=== PATIENT | female | born 1945 | race Caucasian/White ===

== ENCOUNTER 2016-05-01 14:11 | Inpatient (IN) | payer MEDICARE, BC ==
[~2016-05-01] VITALS: Ht 170.2 cm; Wt 58.1 kg
--- NOTE | 2016-05-01 15:00 | NUR ---
PATIENT TO ROOM AT THIS TIME. ASSESSMENT COMPLETE, VS STABLE. FAMILY AT BEDSIDE. ORIENTED TO ROOM AND CALL LIGHT. CALL LIGHT WITHIN REACH.
--- NOTE | 2016-05-01 15:30 | NUR ---
PATIENT IV STARTED BY HERMES MCCLELLAN.
--- NOTE | 2016-05-01 15:45 | NUR ---
NGT AND SOSA PLACED BY NURSING STUDENTS AND INSTRUCTOR AT THIS TIME. PATIENT TOLERATED WITH PAIN. VOMITTED 300ML OF DARK GREEN FLUID. ZOFRAN GIVEN. FAMILY AT BEDSIDE. CALL LIGHT WITHIN REACH.
[2016-05-01 16:39] LABS: CALCIUM 9.8 mg/dL (8.5-10.1); CARBON DIOXIDE 33.2 mmol/L (21.0-32.0); CREATININE - SERUM 0.9 mg/dL (0.6-1.3); MAGNESIUM - SERUM 2.3 mg/dL (1.8-2.4); PHOSPHOROUS 3.2 mg/dL (2.5-4.9); POTASSIUM - SERUM 4.2 mmol/L (3.5-5.1)
[2016-05-01] MEDS ORDERED: NEURONTIN600 MG PO (16:58)
[2016-05-01] MEDS ORDERED: PLAVIX75 MG PO (16:59)
[2016-05-01] MEDS ORDERED: ZOCOR20 MG PO (16:59)
[2016-05-01] MEDS ORDERED: COREG 3.1253.125 MG PO (16:59)
[2016-05-01] MEDS ORDERED: BAYER CHEWABLE81 MG PO (17:00)
[2016-05-01] MEDS ORDERED: BETIMOL15 ML RIGHT EYE (17:09)
[2016-05-01] MEDS ORDERED: ASCORBIC ACID500 MG PO (17:10)
[2016-05-01] MEDS ORDERED: VITAMIN E400 UNI2 PO (17:10)
[2016-05-01] MEDS ORDERED: VITAMIN D2000 UNIT PO (17:11)
[2016-05-01] MEDS ORDERED: SUPER B COMPLE150 MG PO (17:11)
--- NOTE | 2016-05-01 17:15 | NUR ---
PATIENT IN ROOM WITH IV INTACT. NO COMPLAINTS AT THIS TIME. FAMILY AT BEDSIDE. CALL LIGHT WITHIN REACH.
[2016-05-01 17:51] LABS: APPEARANCE HAZY (CLEAR); BILIRUBIN NEGATIVE (NEGATIVE); COLOR DK YELLOW (YELLOW); GLUCOSE NEGATIVE (NEGATIVE); KETONE SMALL mg/dL (NEGATIVE); LEUKOCYTE ESTERASE TRACE (NEGATIVE); NITRITE NEGATIVE (NEGATIVE); PROTEIN 1+ mg/dL (NEGATIVE); UROBILINOGEN NORMAL (NORMAL)
[2016-05-01 17:52] LABS: BACTERIA MODERATE /hpf (NONE SEEN); CALCIUM OXALATE CRYSTALS 0-5 /hpf (NONE SEEN); EPITHELIAL CELLS 0-5 /hpf (0-5); MUCUS <1+ /lpf (NONE SEEN); RED CELLS - URINE 0-5 /hpf (0-5); WHITE CELLS - URINE 0-5 /hpf (0-5)
[2016-05-01 18:38] VITALS: BP 127/90; BMI 20.1; BMI 23.2
--- NOTE | 2016-05-01 18:50 | NUR ---
PATIENT IN BED WITH EYES CLOSED RESTING QUIETLY. IV INTACT. NGT INTACT. FAMILY AT BEDSIDE. CALL LIGHT WITHIN REACH.
[2016-05-01 20:00] VITALS: BP 128/86
--- NOTE | 2016-05-01 23:35 | NUR ---
ASSESSED AT THE BEGINNNING OF THE SHIFT. PT IS ALERT AN ORIENTED, ABLE TO VERBALIZE NEEDS. SHE IS CONNECTED TO LOW INTERMITTEN SUCTION VIA NG TUBE AND IT IS DRAWING GREEN BILE. SHE REMAINS NPO AND HAS A FLOEY CATH FOR VOIDING. SHE HAS STATED THAT SHE IS UNABLE TO SLEEP AND THIS HAS BEEN A COUPLE OF DAYS. WILL TRY TO MAKE HER COMFORTABLE POSSIBLE. THE BED IS LOW, RAILS UP X'S 2 WITH THE CALL LIGHT AT HAND.
[2016-05-02] VITALS: BP 129/85
[2016-05-02 04:00] VITALS: BP 145/89
[2016-05-02 06:43] LABS: BASOPHILS 0.1 % (0.0-2.0); EOSINOPHILS 0 % (0-7); HEMATOCRIT 44.9 % (36.0-48.0); HEMOGLOBIN 14.1 g/dL (12-16); IMMATURE GRANULOCYTES 0.3 % (0-5); LYMPHOCYTES 8.6 % (15-50); MCH 30.3 pg (26.0-34.0); MCHC 31.4 g/dL (31.0-37.0); MCV 96.4 fL (80.0-100.0); MEAN PLATELET VOLUME 9.9 fL (7.4-10.4); MONOCYTES 7.2 % (2-11); NEUTROPHILS 83.8 % (40-80); PLATELET COUNT 356 10x3/uL (130-400); RBC 4.66 10x6/uL (4.00-5.40); RDW 13.5 % (11.5-14.5); WBC 15.2 10x3/uL (4.8-10.8)
[2016-05-02 07:15] LABS: CALC OSMOLALITY 299 mosm/kg (275-300); CALCIUM 9.7 mg/dL (8.5-10.1); CARBON DIOXIDE 31.1 mmol/L (21.0-32.0); CHLORIDE - SERUM 103 mmol/L (98-107); CREATININE - SERUM 0.8 mg/dL (0.6-1.3); GLUCOSE 106 mg/dL (74-106); MAGNESIUM - SERUM 2.4 mg/dL (1.8-2.4); PHOSPHOROUS 3.8 mg/dL (2.5-4.9); POTASSIUM - SERUM 4.2 mmol/L (3.5-5.1); SODIUM 144 mmol/L (136-145); UREA NITROGEN 49 mg/dL (7-18); eGFR NON AFRICAN AMERICAN 75 mL/min (90-120)
--- NOTE | 2016-05-02 07:30 | NUR ---
PATIENT RECEIVED ALERT IN LOW CUELLAR POSITION RESTING QUIETLY. RESPIRTAIONS EVEN AND UNLABORED. NGT TO LIWS. DENIES NEEDS. SIDE RAILS UP X2. BED IN LOW POSITION. CALL LIGHT IN REACH.
[2016-05-02 08:50] VITALS: BP 140/80; BP 145/94
[2016-05-02 10:01] VITALS: Ht 170.2 cm; Wt 58.1 kg
--- NOTE | 2016-05-02 10:35 | NUR ---
SCDS PLACED ON PATIENT BILATERALLY. USE EXPLAINED. DENIES NEEDS. SIDE RAILS UP X2. BED IN LOW POSITION. CALL LIGHT IN REACH .
[2016-05-02 12:48] VITALS: BP 139/91
--- NOTE | 2016-05-02 13:00 | NUR ---
ALERT IN LOW CUELLRA POSITION WITH FAMILY PRESENT. DENIES NEEDS. SIDE RAILS UP X2. BED IN LOW POSITION. CALL LIGHT IN REACH.
[2016-05-02 16:49] VITALS: BP 138/88
--- NOTE | 2016-05-02 17:00 | NUR ---
PATIENT ALERT IN BED VISITING WITH GUESTS. RESPIRATIONS EVEN AND UNLABORED. SIDE RAILS UP X2. BED IN LOW POSITION. CALL LIGHT IN REACH.
--- NOTE | 2016-05-02 19:26 | NUR ---
PATIENT STATED SHE WOULD LIKE HER ATIVAN WITH HER NIGHT MEDS. PATIENT DENIES OTHER NEEDS AT THIS TIME. BED IN LOWEST POSITION AND CALL LIGHT WITHIN REACH.
[2016-05-02 20:59] VITALS: BP 122/79
[2016-05-03] VITALS: BP 133/85
[2016-05-03 04:00] VITALS: BP 139/82
[2016-05-03 05:25] LABS: BASOPHILS 0.1 % (0.0-2.0); EOSINOPHILS 0.1 % (0-7); HEMOGLOBIN 13.1 g/dL (12-16); IMMATURE GRANULOCYTES 0.3 % (0-5); MCHC 31.2 g/dL (31.0-37.0); MCV 96.1 fL (80.0-100.0); MEAN PLATELET VOLUME 9.6 fL (7.4-10.4); MONOCYTES 9.1 % (2-11); NEUTROPHILS 80.4 % (40-80); PLATELET COUNT 322 10x3/uL (130-400); RBC 4.37 10x6/uL (4.00-5.40); RDW 13.3 % (11.5-14.5)
[2016-05-03 06:21] LABS: ALBUMIN 3.2 g/dL (3.4-5.0); ALKALINE PHOSPHATASE 74 U/L (46-116); ALT (SGPT) 14 U/L (10-68); BILIRUBIN - TOTAL 0.46 mg/dL (0.2-1.3); CALC OSMOLALITY 305 mosm/kg (275-300); CALCIUM 9.1 mg/dL (8.5-10.1); CARBON DIOXIDE 31.3 mmol/L (21.0-32.0); CHLORIDE - SERUM 110 mmol/L (98-107); CREATININE - SERUM 0.8 mg/dL (0.6-1.3); GLUCOSE 91 mg/dL (74-106); MAGNESIUM - SERUM 2.4 mg/dL (1.8-2.4); PHOSPHOROUS 3.2 mg/dL (2.5-4.9); POTASSIUM - SERUM 4.1 mmol/L (3.5-5.1); PROTEIN - SERUM 6.9 g/dL (6.4-8.2); SODIUM 149 mmol/L (136-145); UREA NITROGEN 41 mg/dL (7-18); eGFR NON AFRICAN AMERICAN 75 mL/min (90-120)
--- NOTE | 2016-05-03 07:40 | NUR ---
PATIENT RECEIVED ALERT IN LOW CUELLAR POSITION. RESPIRATIONS EVEN AND UNLABORED. SIDE RAILS UP X2. BED IN LOW POSITION. CALL LIGHT IN REACH. DENIES PAIN AND OTHER NEEDS.
[2016-05-03 07:48] VITALS: BP 141/83
--- NOTE | 2016-05-03 09:30 | NUR ---
PATIENT IN LOW CUELLAR POSITION ALERT AND EATING ICE CHIPS. DENIES NEEDS. SIDE RAILS UP X2. BED IN LOW POSITION. CALL LIGHT IN REACH.
--- NOTE | 2016-05-03 11:00 | NUR ---
ALERT IN LOW CUELLAR POSITION. RESPIRATIONS EVEN AND UNLABORED. DENIES PAIN AND OTHER NEEDS. SIDE RAILS UP X2. BED IN LOW POSITION. CALL LIGHT IN REACH.
[2016-05-03 12:22] VITALS: BP 139/82
--- NOTE | 2016-05-03 13:20 | NUR ---
SITTING UP ON SIDE OF BED ALERT. NO SIGNS OF DISTRESS NOTED. PROVIDED WITH POPSICLE. DENIES NEEDS. SIDE RAILS UP X2. BED IN LOW POSITION. CALL LIGHT IN REACH. FAMILY AT BEDSIDE.
--- NOTE | 2016-05-03 15:00 | NUR ---
ASSISTED UP TO RESTROOM. UNABLE TO HAVE BM AT THIS TIME. ASSISTED BACK TO BED. POSITIONED SELF FOR COMFORT. SIDE RAILS UP X2. BED IN LOW POSITION. CALL LIGHT IN REACH. DENIES NEEDS.
[2016-05-03 15:42] VITALS: BP 91/46
--- NOTE | 2016-05-03 17:15 | NUR ---
ASSISTED UP TO CHAIR AT BEDSIDE. WELL TOLERATED. DENIES NEEDS. CALL LIGHT IN REACH.
[2016-05-03 21:00] VITALS: BP 139/95
--- NOTE | 2016-05-03 21:48 | NUR ---
ADMINISTERED ATIVAN PER PATIENT'S REQUEST. PATIENT DENIES OTHER NEEDS AT THIS TIME. BED IN LOWEST POSITION AND CALL LIGHT WITHIN REACH. ENCOURAGED PATIENT TO CALL IF SHE HAS OTHER NEEDS.
[2016-05-04 01:30] VITALS: BP 138/82
[2016-05-04 04:00] VITALS: BP 149/87
[2016-05-04 05:11] LABS: BASOPHILS 0.1 % (0.0-2.0); EOSINOPHILS 0.7 % (0-7); HEMATOCRIT 39.8 % (36.0-48.0); HEMOGLOBIN 12.6 g/dL (12-16); IMMATURE GRANULOCYTES 0.2 % (0-5); LYMPHOCYTES 16.8 % (15-50); MCHC 31.7 g/dL (31.0-37.0); MCV 94.8 fL (80.0-100.0); MONOCYTES 8.3 % (2-11); NEUTROPHILS 73.9 % (40-80); PLATELET COUNT 321 10x3/uL (130-400); RDW 13.1 % (11.5-14.5)
[2016-05-04 05:20] LABS: WBC 9.5 10x3/uL (4.8-10.8)
[2016-05-04 05:25] LABS: ALKALINE PHOSPHATASE 70 U/L (46-116); ALT (SGPT) 14 U/L (10-68); BILIRUBIN - TOTAL 0.48 mg/dL (0.2-1.3); CALC OSMOLALITY 294 mosm/kg (275-300); CALCIUM 8.4 mg/dL (8.5-10.1); CARBON DIOXIDE 32.2 mmol/L (21.0-32.0); CHLORIDE - SERUM 105 mmol/L (98-107); CREATININE - SERUM 0.7 mg/dL (0.6-1.3); GLUCOSE 79 mg/dL (74-106); MAGNESIUM - SERUM 2.1 mg/dL (1.8-2.4); PHOSPHOROUS 2.6 mg/dL (2.5-4.9); POTASSIUM - SERUM 3.9 mmol/L (3.5-5.1); PROTEIN - SERUM 6.5 g/dL (6.4-8.2); SODIUM 145 mmol/L (136-145); UREA NITROGEN 31 mg/dL (7-18); eGFR NON AFRICAN AMERICAN 88 mL/min (90-120)
--- NOTE | 2016-05-04 07:15 | NUR ---
PATIENT RECEIVED ALERT IN LOW CUELLAR POSITION. RESPIRATIONS EVEN AND UNLABORED. SIDE RAILS UP X2. BED IN LOW POSITION. CALL LIGHT IN REACH. DENIES NEEDS.
[2016-05-04 07:48] VITALS: BP 136/90
--- NOTE | 2016-05-04 10:00 | NUR ---
SITTING UP IN CHAIR AT BEDSIDE. NO SIGNS OF DISTRESS NOTED. CALL LIGHT IN REACH. DENIES NEEDS.
[2016-05-04 12:27] VITALS: BP 137/88
--- NOTE | 2016-05-04 14:00 | NUR ---
UP AMBULATING IN HALLWAY WITH PT. NO SIGNS OF DISTRESS NOTED.
[2016-05-04 16:05] VITALS: BP 129/87
--- NOTE | 2016-05-04 16:26 | NUR ---
Patient Name: CATALINA MTZ Admission Status: Urgent Accout number: [id number] Admission Date: 05-01-2016 : 1945 Admission Diagnosis:ILEUS, UNSPECIFIED Attending: AVELINO Current LOS: 3 Anticipated DC Date: 05-08-2016 Planned Disposition: Home Primary Insurance: MEDICARE A & B Discharge Planning Comments: CM MET PATIENT WITH D/C NEEDS AND PLANS. PATIENT STATED SHE LIVES WITH HER DAUGHTER (HERMES) AND SHE WILL DRIVE HER HOME WHEN DISCHARGED. PATIENT STATED SHE IS INDEPENDENT WITH HER CARE AND HAS NO DME AT HOME. PATIENTS PCP IS DR. HOLMAN AND USES [facility]. PATIENT DENIES HOME HEALTH OR ANY NEEDS FOR DISCHARGE. CM WILL CONTINUE TO FOLLOW PATIENT WITH D/C NEEDS AND PLANS. PCP DR. HOLMAN [facility]- [phone] HERMES JOHANSEN (DAUGHTER) [phone] Enterprise Analyst: Danielle Zavaleta Is the patient Alert and Oriented? Yes 0 * How many steps to enter\exit or inside your home? 0 0 * PCP DR. HOLMAN 0 * Pharmacy [facility] 0 * Preadmission Environment Home with Family 0 * ADLs Independent 0 * Equipment None 0 * List name and contact numbers for known caregivers / representatives who currently or will assist patient after discharge: HERMES JOHANSEN (DAUGHTER) [phone] * Community resources currently utilized None 0 * Additional services required to return to the preadmission environment? Yes 0 * Can the patient safely return to the preadmission environment? Yes 0 * Has this patient been hospitalized within the prior 30 days at any hospital? No 0 Grand Total: 0
--- NOTE | 2016-05-04 16:40 | NUR ---
PATIENT IN LOW CUELLAR POSITION RESTING WITH EYES CLOSED. RESPIRATIONS EVEN AND UNLABORED. DENIES NEEDS. SIDE RAILS UP X2. BED IN LOW POSITION. CALL LIGHT IN REACH.
[2016-05-04 19:00] VITALS: BP 120/80
--- NOTE | 2016-05-04 19:34 | NUR ---
PATIENT RESTING IN BED AND DENIES NEEDS AT THIS TIME. BED IN LOWEST POSITION AND CALL LIGHT WITHIN REACH. ENCOURAGED PATIENT TO CALL IF SHE HAS OTHER NEEDS.
[2016-05-05] VITALS (9 sets, daily range): BP systolic 78–136; BP diastolic 47–89
[2016-05-05 06:28] LABS: BASOPHILS 0.2 % (0.0-2.0); EOSINOPHILS 1.4 % (0-7); HEMATOCRIT 40.7 % (36.0-48.0); HEMOGLOBIN 12.9 g/dL (12-16); IMMATURE GRANULOCYTES 0.3 % (0-5); LYMPHOCYTES 18.9 % (15-50); MCH 29.7 pg (26.0-34.0); MCHC 31.7 g/dL (31.0-37.0); MCV 93.6 fL (80.0-100.0); MONOCYTES 8.6 % (2-11); NEUTROPHILS 70.6 % (40-80); PLATELET COUNT 300 10x3/uL (130-400); RBC 4.35 10x6/uL (4.00-5.40); RDW 12.9 % (11.5-14.5); WBC 9.5 10x3/uL (4.8-10.8)
[2016-05-05 06:48] LABS: ALBUMIN 3.2 g/dL (3.4-5.0); ALKALINE PHOSPHATASE 88 U/L (46-116); CALC OSMOLALITY 280 mosm/kg (275-300); CALCIUM 9.1 mg/dL (8.5-10.1); CARBON DIOXIDE 28.9 mmol/L (21.0-32.0); CHLORIDE - SERUM 100 mmol/L (98-107); CREATININE - SERUM 0.7 mg/dL (0.6-1.3); GLUCOSE 72 mg/dL (74-106); MAGNESIUM - SERUM 1.9 mg/dL (1.8-2.4); POTASSIUM - SERUM 4.4 mmol/L (3.5-5.1); PROTEIN - SERUM 6.4 g/dL (6.4-8.2); SODIUM 139 mmol/L (136-145); UREA NITROGEN 24 mg/dL (7-18); eGFR NON AFRICAN AMERICAN 88 mL/min (90-120)
[2016-05-05 06:52] LABS: ALT (SGPT) 21 U/L (10-68)
--- NOTE | 2016-05-05 07:00 | NUR ---
REPORT RECIEVED ASSUMED CARE. PATIENT IN BED WITH IV INTACT. NO COMPLAINTS AT THIS TIME. CALL LIGHT WITHIN REACH.
--- NOTE | 2016-05-05 07:48 | HP ---
PATIENT: CATALINA MTZ MEDICAL RECORD: [id number] ACCOUNT: [id number] LOCATION:[id number] : 47 ADMISSION DATE: 05/01/16 HISTORY AND PHYSICAL EXAMINATION HISTORY OF PRESENT ILLNESS: A 71-year-old female, who presents to the clinic with diffuse abdominal pain, nausea and vomiting for the past 4 days. PAST MEDICAL HISTORY: Significant for previous remote peritonitis secondary to perforated appendix. Also had history of bypass surgery in 2012. She had 9 subsequent abdominal surgeries after her peritonitis. ALLERGIES: PENICILLIN. CURRENT MEDICATIONS: Listed as carbamazepine 200 mg, carvedilol 3.125 mg b.i.d., Plavix 75 mg daily, gabapentin 600 mg, Nitrostat 0.4 p.r.n., simvastatin 20 mg daily, timolol eyedrops and ulfj-hvp-bomrokw vitamins. SOCIAL HISTORY: Never smoker. Denies alcohol. FAMILY HISTORY: Mother with heart disease. Father with heart disease. Daughter with heart disease. REVIEW OF SYSTEMS: GENERAL: Loss, weight and appetite with acute illness. HEENT: No cephalgia, visual changes, tinnitus, epistaxis, or dysphagia. CARDIOVASCULAR: History as above. Denies chest pain or palpitations. PULMONARY: Denies hemoptysis, denies night sweats. GASTROINTESTINAL: Admits persistent nausea and vomiting for the past 4 days. No bowel movement and no diarrhea. GENITOURINARY: Decreased urine output since onset of symptoms. MUSCULOSKELETAL: No acute changes. ENDOCRINE: Denies polyuria, polydipsia, or polyphagia. PHYSICAL EXAMINATION: VITAL SIGNS: Temperature 98.2, blood pressure 110/68, heart rate 76, respirations 18, weight 130. GENERAL: Alert and oriented. Moderate to severe distress secondary to above. HEENT: Normocephalic, atraumatic. Eyes: Pupils are equal, round, reactive to light and accommodation. Extraocular muscles intact. Conjunctivae not injected. Ears: Canals patent, TMs are intact. Nose: Nares patent without drainage. Throat: No erythema, no exudates. NECK: Supple. No lymphadenopathy, no JVD. HEART: Regular rate and rhythm. No S3, S4, no rub. LUNGS: Clear to auscultation bilaterally. Breathing is nonlabored. ABDOMEN: Hypoactive bowel sounds. Diffuse tenderness. No palpable mass. No rebound, no guarding. EXTREMITIES: Present times 4, no edema. NEUROLOGIC: No focal deficits. SKIN: Warm, dry. No rash. DIAGNOSTIC DATA: Upright abdominal film with multiple air-fluid levels consistent with ileus versus bowel obstruction. LABORATORY DATA: CBC: White count 19,000, hemoglobin 14.3, hematocrit 46.1, HISTORY AND PHYSICAL [id number] CATALINA MTZ J platelets 429. ASSESSMENT AND PLAN: Likely bowel obstruction with history of leukocytosis, likely reactionary from the intractable nausea and vomiting. The patient is admitted. IV fluids, electrolyte protocol, labs on admission, chemistry, magnesium and phosphorus. Urinalysis, urine culture and blood culture times 1. Consult surgery. Zofran 4 mg IV q.4 p.r.n. nausea and vomiting. Stat CT abdomen and pelvis with IV and oral contrast. Supportive care. TRANSINT:[id number] Voice Confirmation ID: [id number] DOCUMENT ID: [id number] ANAIS HOLMAN DO at 0748 CC: [id number] DICTATION DATE: 05/01/16 1454 SLIP COVER SEAMSTRESS: 05/01/16 1632 ADM IN [facility] [address] [place] [address]
--- NOTE | 2016-05-05 13:51 | NUR ---
NUTRITION MONITORING & EVAL CHART REVIEWED. PT REMAINS NPO WITH NG TO LIWS. TO OR TODAY FOR PROCEDURE. WILL REQUIRE NUTRITION SUPPORT IF UNABLE TO START CLEAR LIQUIDS [address] FOLLOWING
--- NOTE | 2016-05-05 14:00 | NUR ---
PATIENT TO OR AT THIS TIME.
--- NOTE | 2016-05-05 14:28 | NUR ---
PT WAS IN BED IN PM, SHE REPORTED THAT SHE HAD JUST RECENTLY AMB DOWN THE VERAS, AND THAT SHE HAD BEEN SITTING UP FOR SEVERAL HOURS; PT CONT TO REPORT THAT SHE FELT BAD; SHE DID NOT WANT TO SIT UP IN THE CHAIR AGAIN, BUT DID AGREE TO BED MOB ACT.WITH MIN/MOD ASSIST
--- NOTE | 2016-05-05 16:49 | NUR ---
ANESTHESIA AT BEDSIDE REQUESTING FLUID BOLUS FOR HYPOTENTION. ANDRIANA ADVISES SYSTOLIC BP WAS 100 PRIOR TO SURGERY
--- NOTE | 2016-05-05 17:09 | NUR ---
ANESTHESIA AT BEDSIDE AND ORDERED DISCHARGE FRO RECOVERY ROOM
--- NOTE | 2016-05-05 17:36 | NUR ---
PATIENT BACK TO ROOM AT THIS TIME. IV INTACT. NGT LIWS. VS STABLE. BP 90'S / 50'S. WILL CONTINUE TO MONITOR. PATIENT EYES CLOSED RESTING QUIETLY. NATALIA DRAIN EMPTIED. FAMILY AT BEDSIDE. CALL LIGHT WITHIN REACH.
--- NOTE | 2016-05-05 17:50 | NUR ---
PATIENT IN BED EYES CLOSED RESTING QUIETLY. IV INTACT. NGT INTACT. WILL CONTINUE TO MONITOR. CALL LIGHT WITHIN REACH.
--- NOTE | 2016-05-05 18:45 | NUR ---
PATIENT BP LOW AT THIS TIME. BLE ELEVATED IN BED. IV INTACT. WILL CONTINUE TO MONITOR. CALL LIGHT WITHIN REACH. NATALIA DRAIN EMPTIED.
--- NOTE | 2016-05-05 19:16 | NUR ---
OT NOTE: PT COMPLETED BUE POSITIONING FOR DECREASED RISK OF SKIN BREAKDOWN. PT COMPLETED SIMPLE GRROOMING TASK WITH SKY Almonte THANK YOU, LUIS ALBERTO COYNE/Ros
--- NOTE | 2016-05-05 19:40 | NUR ---
PATIENT BP LOWER. PAGED DR. CANCINO AT THIS TIME. NEW ORDERS RECIEVED AND CARRIED OUT.
--- NOTE | 2016-05-05 20:14 | NUR ---
RECIEVED PT ON ROUNDS WITH STATUS POST BOWEL RESECTION AND LIATHISIS OF ADHESIONS WELL EXPLORATORY LAPAROTOMY. NATALIA DRAIN NOTED TO LEFT SIDE OF ABDOMEN. LAP SITE DRESSINGS NOTED X 6 WELL MIDLINE DRESSING NOTED CLEAN DRY AND INTACT. NGT NOTED TO LIS DARK FLUID NOTED TO TUBING. PT RECIEVED HYPOTENSIVE. RECIEVING FLUID BOLUS OF 1 LITER BP 80/34 HR 110 COMPLAINING OF PAIN TO RIGHT FLANK AND LOWER BACK NON TENDER TO PALPATION IN ABDOMEN . ABDOMEN SOFT TO PALPATION. FEET ELEVATED HEAD LOWERED. WILL MONITOR SALVATORE CANCINO AWARE OF PT STATUS PER PREVIOUS NURSE CALL AT 1945.
[2016-05-05 20:23] LABS: BASOPHILS 0 % (0.0-2.0); EOSINOPHILS 0.2 % (0-7); HEMATOCRIT 38.7 % (36.0-48.0); HEMOGLOBIN 12.1 g/dL (12-16); IMMATURE GRANULOCYTES 0.2 % (0-5); LYMPHOCYTES 10.4 % (15-50); MCH 29.7 pg (26.0-34.0); MCHC 31.3 g/dL (31.0-37.0); MCV 95.1 fL (80.0-100.0); MEAN PLATELET VOLUME 9.4 fL (7.4-10.4); MONOCYTES 9.3 % (2-11); NEUTROPHILS 79.9 % (40-80); PLATELET COUNT 272 10x3/uL (130-400); RBC 4.07 10x6/uL (4.00-5.40)
[2016-05-05 20:30] LABS: WBC 4.4 10x3/uL (4.8-10.8)
--- NOTE | 2016-05-05 23:59 | NUR ---
B/P 94/57 HR98 RESTING COMFORTABLE WITH NO DISTRESS NOTED NGT TO LIS PATENT TO DARK FLUID
[2016-05-06 05:24] LABS: BASOPHILS 0 % (0.0-2.0); EOSINOPHILS 0 % (0-7); HEMATOCRIT 38.7 % (36.0-48.0); HEMOGLOBIN 12.2 g/dL (12-16); IMMATURE GRANULOCYTES 0.2 % (0-5); LYMPHOCYTES 7.5 % (15-50); MCH 29.6 pg (26.0-34.0); MCHC 31.5 g/dL (31.0-37.0); MCV 93.9 fL (80.0-100.0); MEAN PLATELET VOLUME 10.1 fL (7.4-10.4); MONOCYTES 7.3 % (2-11); PLATELET COUNT 277 10x3/uL (130-400); RBC 4.12 10x6/uL (4.00-5.40); RDW 12.9 % (11.5-14.5)
[2016-05-06 05:35] LABS: CALC OSMOLALITY 280 mosm/kg (275-300); CALCIUM 8.3 mg/dL (8.5-10.1); CARBON DIOXIDE 23.5 mmol/L (21.0-32.0); CHLORIDE - SERUM 106 mmol/L (98-107); CREATININE - SERUM 0.7 mg/dL (0.6-1.3); GLUCOSE 97 mg/dL (74-106); MAGNESIUM - SERUM 1.5 mg/dL (1.8-2.4); SODIUM 139 mmol/L (136-145); UREA NITROGEN 21 mg/dL (7-18); WBC 8.8 10x3/uL (4.8-10.8); eGFR NON AFRICAN AMERICAN 88 mL/min (90-120)
--- NOTE | 2016-05-06 07:40 | NUR ---
RESTING IN BED, DENIES NEEDS, ASSESSMENT COMPLETE, BED LOWEST POSITION, CALL LIGHT IN REACH, SIDE RAILS X2, WILL CONTINUE TO MONITOR
--- NOTE | 2016-05-06 07:51 | OP ---
PATIENT NAME: CATALINA MTZ MEDICAL RECORD: [id number] :47 LOCATION:D.MS [id number] ADMISSION DATE:05/01/16 SURGEON: IWONA DOLAN MD DATE OF OPERATION: 05/05/2016 SURGEON: Iwona Dolan MD PREOPERATIVE DIAGNOSIS: Small-bowel obstruction. POSTOPERATIVE DIAGNOSIS: Small-bowel obstruction. PROCEDURE PERFORMED: Laparoscopic lysis of adhesions and repair of enterotomy. ANESTHESIA: General. COMPLICATIONS: None. SPECIMENS: None. Case was grossly contaminated. ESTIMATED BLOOD LOSS: 30 cc. SPECIMENS: None. OPERATIVE COURSE: After consent was obtained, the patient was taken to the operating room and placed in supine position on the operating table. Next, general anesthesia was given via endotracheal intubation after a timeout was performed that confirmed the correct patient and procedure. Thereafter, the abdomen was prepped and draped in typical sterile fashion. Local anesthetic was injected in the left upper quadrant at Major's point. A stab incision was made with 11-blade scalpel. Using a 5-mm bladeless optical trocar, the abdomen was entered under direct laparoscopic vision. Adequate pneumoperitoneum was achieved. The abdominal cavity was inspected. No evidence of bowel injury. No evidence of bleeding. At this time, 2 additional 5-mm trocars were placed, one in the left lateral quadrant, one in the left lower quadrant, again with the administration of local anesthetic under direct laparoscopic vision, approximately 75% of the case time was spent performing lysis of adhesions. The patient with history of previous perforated appendicitis and peritonitis requiring multiple exploratory laparotomies. Once all adhesions were taken down, decompressed small bowel was identified in the right lower quadrant, laparoscopic lysis of adhesions was performed on the decompressed small bowel. We worked proximally towards the jejunum until the area of obstruction was identified. There was a band tethering the mid small bowel along the right lateral pelvic side wall. Lysis of adhesions was performed with sharp dissection. There was immediate distal filling of the small bowel. The small bowel was continued to be worked proximally until the ligament of Treitz was identified. We attempted to run the small bowel the second time from the ligament of Treitz to the terminal ileum when an enterotomy was noted. A small 5-cm incision was made in the lower midline. At this time, an Per retractor was placed. The small bowel was extracorporealized. The enterotomy was identified. It was repaired with 3-0 silk suture in 2 layers. At this time, the abdomen was irrigated with approximately 4 liters of warm normal saline and suctioned. A NATALIA drain was placed in the pelvis and brought out through the left lower quadrant trocar site. The bowel was run from the terminal ileum to OPERATIVE REPORT [id number] CATALINA MTZ ligament of Treitz on 2 occasions ____ repair of the small bowel enterotomy. At this time, the trocars and instruments had been removed at the time of the midline incision. At this time, the Per retractor was removed. The abdominal cavity was inspected. No evidence of bowel injury. No evidence of bleeding. The irrigation return was clear. At this time, the incision was closed with a #1 looped PDS. Skin was closed with andrei, trocar sites were closed with andrei. The NATALIA drain was secured to the skin with an 0 silk suture. At the end of the case, all needle and instrument counts were correct. No complications occurred. The patient was extubated and transferred to the PACU in stable condition. TRANSINT:[id number] Voice Confirmation ID: [id number] DOCUMENT ID: [id number] IWONA DOLAN MD at 0751 CC: [id number] DICTATION DATE: 05/05/16 1622 TOOL TENDER: 05/05/162001 ADM IN [facility] [address] [place] [address]
[2016-05-06 08:50] VITALS: BP 101/59
[2016-05-06 12:48] VITALS: BP 90/55
--- NOTE | 2016-05-06 14:15 | NUR ---
PATIENT IS IN BED, HOB 45 DEGREES. NGT TO LIWS. PATIENT'S NURSE STATED SHE IS ABOUT TO D/C THE NGT. BED IS IN LOWEST POSITION, CALL LIGHT IN REACH. BED RAILS UP X'S 2. NO SIGNS OF DISTRESS NOTED. PATIENT DENIES NEEDS.
--- NOTE | 2016-05-06 14:42 | NUR ---
NG TUBE AND SOSA TAKEN OUT TIPS INTACT, PT TOLERATED WELL, NO COMPLAINTS
[2016-05-06 16:34] VITALS: BP 97/71
--- NOTE | 2016-05-06 17:58 | NUR ---
BOLUS FINISHED BP 107/71
[2016-05-06 19:00] VITALS: BP 101/63
--- NOTE | 2016-05-06 20:07 | NUR ---
ASSISTED PATIENT TO THE RESTROOM PER THE PATIENT'S REQUEST. FLUSHED PATIENT'S IV. PATIENT DENIES OTHER NEEDS AT THIS TIME.
[2016-05-07] VITALS: BP 101/62
--- NOTE | 2016-05-07 02:13 | NUR ---
GAVE ZOFRAN 4 MG IVP PER PRN ORDER, PER PT REQUEST FOR C/O NAUSEA. WILL MONITOR FOR EFFECTIVENESS.
[2016-05-07 04:00] VITALS: BP 94/54
[2016-05-07 05:10] LABS: BASOPHILS 0.1 % (0.0-2.0); EOSINOPHILS 0.3 % (0-7); HEMATOCRIT 34.3 % (36.0-48.0); HEMOGLOBIN 10.9 g/dL (12-16); IMMATURE GRANULOCYTES 0.5 % (0-5); LYMPHOCYTES 5.5 % (15-50); MCH 29.1 pg (26.0-34.0); MCHC 31.8 g/dL (31.0-37.0); MONOCYTES 5.2 % (2-11); NEUTROPHILS 88.4 % (40-80); PLATELET COUNT 259 10x3/uL (130-400); RBC 3.74 10x6/uL (4.00-5.40); RDW 13.2 % (11.5-14.5)
[2016-05-07 05:12] LABS: MCV 91.7 fL (80.0-100.0); WBC 17.7 10x3/uL (4.8-10.8)
[2016-05-07 05:45] LABS: ALKALINE PHOSPHATASE 67 U/L (46-116); ALT (SGPT) 19 U/L (10-68); CALCIUM 8.6 mg/dL (8.5-10.1); CARBON DIOXIDE 25.8 mmol/L (21.0-32.0); CHLORIDE - SERUM 102 mmol/L (98-107); CREATININE - SERUM 0.6 mg/dL (0.6-1.3); GLUCOSE 90 mg/dL (74-106); MAGNESIUM - SERUM 1.7 mg/dL (1.8-2.4); PROTEIN - SERUM 5.1 g/dL (6.4-8.2); SODIUM 135 mmol/L (136-145); eGFR NON AFRICAN AMERICAN > 90 mL/min (90-120)
[2016-05-07 05:52] LABS: ALBUMIN 1.8 g/dL (3.4-5.0); CALC OSMOLALITY 269 mosm/kg (275-300); PHOSPHOROUS 2.1 mg/dL (2.5-4.9); POTASSIUM - SERUM 4.2 mmol/L (3.5-5.1); UREA NITROGEN 12 mg/dL (7-18)
--- NOTE | 2016-05-07 07:51 | NUR ---
DR. DOLAN CALLED AND CHANGED MORPHINE DOSE TO 1 MG AND STATED PUT PATIENT ON HOME DOSE OF ATIVAN, ASKED PATIENT AND SHE DENIES ANY ATIVAN, LOOKED IN MED RECONCILIATION AND THERE IS NO ATIVAN ON MED LIST.
[2016-05-07 08:47] VITALS: BP 102/65
--- NOTE | 2016-05-07 09:01 | NUR ---
PATIENT REQUESTED MORPHINE, SHE RECEIVED 1 MG MORPHINE IV AND SHE THEN GOT UP TO SIT IN TE CHAIR. PATIENT TOLERATING WELL, PASSING GAS. NO NEEDS.
--- NOTE | 2016-05-07 11:30 | NUR ---
PATIENT SITTING AND PT DID COME AND WALK IN ROOM.
--- NOTE | 2016-05-07 13:00 | NUR ---
PATIENT IS AWAKE AND ALERT AND SHE IS NOT C/O PAIN AT THIS TIME.
[2016-05-07 13:06] VITALS: BP 93/62
--- NOTE | 2016-05-07 13:50 | NUR ---
PATIENT C/O PAIN REQUEST PAIN MED. RATES PAIN AT 05/08, MORPHINE 1 MG IV GIVEN NOW.
--- NOTE | 2016-05-07 14:15 | NUR ---
PATIENT SLEEPING, NO PAIN NOTED.
--- NOTE | 2016-05-07 15:00 | NUR ---
PATIENT IS RESTING EASILY, NO C/O.
[2016-05-07 16:23] VITALS: BP 106/63
--- NOTE | 2016-05-07 17:00 | NUR ---
PATIENT SITTING UP, SHE SAYS SHE IS BURPING AND SHE IS BEGINNING TO FEEL BETTER.
[2016-05-07 20:00] VITALS: BP 95/57
--- NOTE | 2016-05-07 22:45 | NUR ---
ASSESSED AT THE BEGINNING OF THE SHIFT. PT IS ALERT AND ORIENTED, ABLE TO VERBALIZE NEEDS. SHE HAS A MIDLINE INCISION TO HER ABD AND A COUPLE TO THE SIDE. ALL ARE CLEAN DRY AND NO DRAINAGE WITH ONE NATALIA DRAIN COMPLRESED AT DRAINING BLOODY FLUIDS. SHE REQUESTED ATIVAN AT BEDTIME TO HELP HER REST, STATING THAT SHE DID NOT GET IT LAST NIGHT AND WAS AWAKE ALL NIGHT. THE BED IS LOW, RIALS UP X'S 2 WITH THE CALL LIGHT AT AHND.
[2016-05-08] VITALS: BP 97/59
[2016-05-08 04:00] VITALS: BP 107/68
[2016-05-08 04:49] LABS: BASOPHILS 0.1 % (0.0-2.0); EOSINOPHILS 0.8 % (0-7); HEMATOCRIT 30.7 % (36.0-48.0); HEMOGLOBIN 9.9 g/dL (12-16); IMMATURE GRANULOCYTES 0.3 % (0-5); MCH 29.6 pg (26.0-34.0); MCHC 32.2 g/dL (31.0-37.0); MCV 91.9 fL (80.0-100.0); MEAN PLATELET VOLUME 10.1 fL (7.4-10.4); MONOCYTES 3.1 % (2-11); NEUTROPHILS 89.7 % (40-80); PLATELET COUNT 293 10x3/uL (130-400); RBC 3.34 10x6/uL (4.00-5.40); RDW 13.5 % (11.5-14.5); WBC 17.2 10x3/uL (4.8-10.8)
[2016-05-08 04:56] LABS: ALBUMIN 1.8 g/dL (3.4-5.0); ALKALINE PHOSPHATASE 80 U/L (46-116); ALT (SGPT) 15 U/L (10-68); BILIRUBIN - TOTAL 0.39 mg/dL (0.2-1.3); CALC OSMOLALITY 275 mosm/kg (275-300); CALCIUM 8.3 mg/dL (8.5-10.1); CARBON DIOXIDE 28.1 mmol/L (21.0-32.0); CHLORIDE - SERUM 104 mmol/L (98-107); CREATININE - SERUM 0.7 mg/dL (0.6-1.3); GLUCOSE 85 mg/dL (74-106); PHOSPHOROUS 1.8 mg/dL (2.5-4.9); POTASSIUM - SERUM 3.7 mmol/L (3.5-5.1); PROTEIN - SERUM 5.2 g/dL (6.4-8.2); SODIUM 139 mmol/L (136-145); UREA NITROGEN 10 mg/dL (7-18); eGFR NON AFRICAN AMERICAN 88 mL/min (90-120)
--- NOTE | 2016-05-08 07:20 | NUR ---
PATIENT IN BED WITH IV INTACT. NO COMPLAINTS AT THIS TIME. NO SIGNS OF DISTRESS. CALL LIGHT WITHIN REACH.
--- NOTE | 2016-05-08 07:53 | NUR ---
RESTING IN BED, DENIES NEEDS, CALL LIGHT IN REACH, BED LOWEST POSITION, SIDE RAILS UPX2
[2016-05-08 08:44] VITALS: BP 97/59
--- NOTE | 2016-05-08 09:58 | NUR ---
Nutrition Follow Up: Pt reported that her appetite is okay. Consult received to start PPN. Diet has been advanced to clear liquid. I>O. No BM since admit. No new wt to assess. Labs noted - Phos low. Meds noted including NS KCl @ 100 ml/hr. Will put order in to start PPN @ 50 ml/hr. This will provide 612 kcal and 51 g protein. Rec advancing diet as tolerated when medically feasible. RD following.
[2016-05-08 13:04] VITALS: BP 105/70
--- NOTE | 2016-05-08 13:34 | NUR ---
OT NOTE: PT OBSERVED SITTING UP IN CHAIR; SHE REPORTED THAT SHE WAS FEELING A LITTLE BETTER, STILL PAIN IN ABDOMINAL AREA. REPORTED THAT SHE HAD BEEN UP IN CHAIR FOR SEVERAL HRS; ABLE TO DEMONSTRATE SIT TO STAND WITH CGA; REPORTS THAT SHE IS NOW A GETTING A TRAY OF CLEAR LIQUIDS AND IS HANDLEING IT WELL; WILL CONT TO PROGRESS WITH MORE EX AND ADLS TOLERATED BY PT
--- NOTE | 2016-05-08 20:00 | NUR ---
PT RECEIVED SITTING UP IN BED. PT IS ALERT AND ORIENTED X4. LUNG SOUNDS CLEAR BILATERALLY. RESPIRATIONS EVEN AND ULABORED. BOWEL SOUNDS HYPOACTIVE IN ALL FOUR QUADRANTS. DENIES TENDERNESS UPON PALPATION. PT DENIES PAIN AT THIS TIME. IV TO LEFT WRIST NOTED TO BE PATENT AT THIS TIME. PT DENIES PAIN OR NEEDS AT THIS TIME. CALL LIGHT AND H2O IN PT REACH.
[2016-05-08 22:13] VITALS: BP 115/73
[2016-05-08 22:40] VITALS: BP 115/73
[2016-05-09] VITALS: BP 123/71
--- NOTE | 2016-05-09 00:26 | NUR ---
PT RESTING IN BED WITH EYES CLOSED. NO S/S OF DISTRESS NOTED. RESP EVEN AND UNLABORED. CALL LIGHT AND H2O IN REACH.
--- NOTE | 2016-05-09 01:37 | NUR ---
PT IS AWAKE WHILE NURSE IS AT THE BEDSIDE TO RESITE IV. SHE IS QUIET IN HER ROOM AND USES SYDNI ASSIST TO GO TO THE BATHROOM. THE BED IS LOW, RAILS UP X'S 2 WITH THE CALL LIGHT AT HAND.
--- NOTE | 2016-05-09 01:40 | NUR ---
IV SITE NOTED TO RIGHT WRIST. WHEN PT BENDS WRIST, IV NOTED TO LEAK AND ALARM TO PUMP SOUNDING D/T OCCLUSION. ATTEMPTED TO RESITE IV X 1 ATTEMPT, UNSUCCESSFUL. PT STATES, "IT'S NOT LEAKING NOW, WE'LL JUST LEAVE THIS ONE FOR NOW." PT LAYING IN BED, IV PATENT AT THIS TIME. CALL LIGHT AND H2O IN REACH.
--- NOTE | 2016-05-09 02:07 | NUR ---
PT RESTING IN BED WITH EYES CLOSED. NO S/S OF DISTRESS NOTED. RESP EVEN AND UNLABORED. AROUSES TO VERBAL STIMULI. CALL LIGHT IN PT REACH AND H2O IN PT REACH.
[2016-05-09 04:00] VITALS: BP 118/72
[2016-05-09 05:33] LABS: BASOPHILS 0.1 % (0.0-2.0); EOSINOPHILS 0.3 % (0-7); HEMATOCRIT 32.2 % (36.0-48.0); HEMOGLOBIN 10.4 g/dL (12-16); IMMATURE GRANULOCYTES 0.4 % (0-5); LYMPHOCYTES 4.8 % (15-50); MCH 29.7 pg (26.0-34.0); MCHC 32.3 g/dL (31.0-37.0); MEAN PLATELET VOLUME 10.1 fL (7.4-10.4); MONOCYTES 3.8 % (2-11); NEUTROPHILS 90.6 % (40-80); PLATELET COUNT 336 10x3/uL (130-400); RDW 13.8 % (11.5-14.5); WBC 18.2 10x3/uL (4.8-10.8)
[2016-05-09 05:52] LABS: ALBUMIN 1.9 g/dL (3.4-5.0); ALKALINE PHOSPHATASE 94 U/L (46-116); ALT (SGPT) 18 U/L (10-68); CALC OSMOLALITY 285 mosm/kg (275-300); CALCIUM 8.8 mg/dL (8.5-10.1); CARBON DIOXIDE 30.8 mmol/L (21.0-32.0); CHLORIDE - SERUM 103 mmol/L (98-107); CREATININE - SERUM 0.7 mg/dL (0.6-1.3); MAGNESIUM - SERUM 2.1 mg/dL (1.8-2.4); POTASSIUM - SERUM 3.6 mmol/L (3.5-5.1); PROTEIN - SERUM 5.9 g/dL (6.4-8.2); SODIUM 142 mmol/L (136-145); UREA NITROGEN 12 mg/dL (7-18); eGFR NON AFRICAN AMERICAN 88 mL/min (90-120)
[2016-05-09 05:53] LABS: GLUCOSE 152 mg/dL (74-106); PHOSPHOROUS 2.5 mg/dL (2.5-4.9)
--- NOTE | 2016-05-09 07:30 | NUR ---
RECIEVED PT DURING WALKING ROUNDS. PT RESTING COMFORTABLY IN BED WITH NO COMPLAINTS OF PAIN AT THIS TIME. ASSESSMENT DONE PER FLOWSHEET. BED IN LOW POSITION AND CALL LIGHT WITHIN REACH. WILL CONTINUE TO MONITOR.
--- NOTE | 2016-05-09 08:50 | NUR ---
RESITED IV TO THE PTS LEFT WRIST DUE TO PREVIOUS IV LEAKING. 22G 1 ATTEMPT, FLUSHED WITH 10ML OF NS AND SECURED WITH OP-SITE AND TAPE. IV FLUIDS RESTARTED TO NEW IV. PREVIOUS IV DC'D WITH CATH INTACT. BED IN LOW POSITION AND CALL LIGHT WITHIN REACH. WILL CONTINUE TO MONITOR.
[2016-05-09 09:32] VITALS: BP 122/72
--- NOTE | 2016-05-09 12:44 | NUR ---
LAYING QUIETLY IN BED AT PRESENT IV INTACT SITE CLEAN AND DRY WITHOUT REDDNESS OR EDEMA NOTED.
[2016-05-09 13:46] VITALS: BP 118/70
[2016-05-09 19:18] VITALS: BP 110/65
[2016-05-09 20:00] VITALS: BP 109/64
[2016-05-10] VITALS: BP 112/70
--- NOTE | 2016-05-10 01:18 | NUR ---
ASSESSED AT THE BEGINNING OF THE SHIFT. PT IS ALERT AND ORIENTED, ABLE TO VERBALIZE NEDDS. SHE HAS A MIDLINE INCISION UNDRESSED AND IT LOOKS GOOD. THERE ARE ALSO TO ALSMOST HEALED LAP SITES AND A NATALIA DRAIN WITH VERY LITTLE IN IT. SHE IS ABLE TO GET UP TO THE BATHROOM TO VOID WITH MIN. ASSIST. BUT AT ABOUT MIDNIGHT SHE WAS DREAMING SHE WAS GOING TO THE BATHROOM AND VOIDED IN THE BED. SHE WAS CLEANED UP AND MADE COMFORTABLE. SHE HAD REQUESTED SOMETHING TO SLEEP AT BEDTIME AND GOT ATIVAN WHICH MIGHT HAVE MADE HER SLEEP TO HARD TO AROUSE. THE BED IS LOW, RAILS UP X'S 2 WITH THE CALL LIGHT AT HAND.
[2016-05-10 04:00] VITALS: BP 116/71
[2016-05-10 05:27] LABS: CALC OSMOLALITY 282 mosm/kg (275-300); CALCIUM 8.4 mg/dL (8.5-10.1); CHLORIDE - SERUM 107 mmol/L (98-107); GLUCOSE 114 mg/dL (74-106); MAGNESIUM - SERUM 1.8 mg/dL (1.8-2.4); PHOSPHOROUS 2.6 mg/dL (2.5-4.9); SODIUM 142 mmol/L (136-145); UREA NITROGEN 9 mg/dL (7-18)
[2016-05-10 05:36] LABS: CREATININE - SERUM 0.5 mg/dL (0.6-1.3); POTASSIUM - SERUM 4.2 mmol/L (3.5-5.1); eGFR NON AFRICAN AMERICAN > 90 mL/min (90-120)
--- NOTE | 2016-05-10 07:00 | NUR ---
REPORT RECIEVED ASSUMED CARE. PATIENT IN BED WITH IV ITNACT. NO COMPLAINTS. CALL LIGHT WITHIN REACH.
[2016-05-10 09:00] VITALS: BP 104/67
[2016-05-10 16:34] VITALS: BP 108/68
--- NOTE | 2016-05-10 18:45 | NUR ---
PATIENT IN BED WITH IV INTACT. JOSE ANGEL TO ABDOMEN CDI. NATALIA DRAIN INTACT. NO FLUID TO EMPTY. NO COMPLAINTS AT THIS TIME. CALL LIGHT WITHIN REACH.
--- NOTE | 2016-05-10 22:55 | NUR ---
PATIENT RESTING IN BED. NO SIGNS OF DISTRESS NOTED. COMPLAINTS OF ANXIETY. ATIVAN GIVEN PER ORDER. SCHEDULED MEDS GIVEN. ASSESSMENT COMPLETED. DENIES ANY OTHER NEEDS AT THIS TIME. BED LOW. CALL LIGHT IN REACH.
[2016-05-10 23:13] VITALS: BP 104/66
--- NOTE | 2016-05-11 03:00 | NUR ---
PT IN BED WITH NO DISTRESS. RESPIRATIONS EVEN AND UNLABORED. SIDE RAILS X 2. BED LOW. CALL LIGHT IN REACH.
[2016-05-11 04:00] VITALS: BP 110/68
[2016-05-11 05:18] LABS: BASOPHILS 0.2 % (0.0-2.0); EOSINOPHILS 4.2 % (0-7); HEMATOCRIT 32.5 % (36.0-48.0); HEMOGLOBIN 10.2 g/dL (12-16); IMMATURE GRANULOCYTES 2.3 % (0-5); LYMPHOCYTES 19.2 % (15-50); MCH 29.2 pg (26.0-34.0); MCHC 31.4 g/dL (31.0-37.0); MCV 93.1 fL (80.0-100.0); MEAN PLATELET VOLUME 9.4 fL (7.4-10.4); MONOCYTES 13.4 % (2-11); NEUTROPHILS 60.7 % (40-80); PLATELET COUNT 360 10x3/uL (130-400); RBC 3.49 10x6/uL (4.00-5.40); RDW 13.7 % (11.5-14.5); WBC 6.4 10x3/uL (4.8-10.8)
[2016-05-11 05:37] LABS: CALC OSMOLALITY 277 mosm/kg (275-300); CALCIUM 8.8 mg/dL (8.5-10.1); CARBON DIOXIDE 30.6 mmol/L (21.0-32.0); CHLORIDE - SERUM 104 mmol/L (98-107); CREATININE - SERUM 0.5 mg/dL (0.6-1.3); GLUCOSE 112 mg/dL (74-106); POTASSIUM - SERUM 4.6 mmol/L (3.5-5.1); SODIUM 140 mmol/L (136-145); UREA NITROGEN 8 mg/dL (7-18); eGFR NON AFRICAN AMERICAN > 90 mL/min (90-120)
[2016-05-11 08:37] VITALS: BP 113/68
--- NOTE | 2016-05-11 08:40 | NUR ---
PT. AOX4 PT DENIES NEEDS AT THIS TIME. IV TO LEFT WRIST PATENT AND INTACT BED AT LOWEST SETTING CALL LIGHT WITHIN REACH WILL CONTINUE TO MONITOR
--- NOTE | 2016-05-11 09:15 | NUR ---
NATALIA DRAIN REMOVED WITH MINOR PAIN TO PT. AND 10 ML OF PINK CLEAR DRAINAGE AT THIS TIME
--- NOTE | 2016-05-11 11:06 | NUR ---
CM REASSESSMENT NOTE: PATIENT HAS SIGNED THE [facility] FORM WITH [facility] AND HOME AND REFERRAL SENT. PATIENT LIVES WITH DAUGHTER AND WILL RETURN THERE AT DISCHARGE.
--- NOTE | 2016-05-11 11:15 | NUR ---
CM REASSESSMENT NOTE: PATIENT HAS SIGNED THE MCKINLEY FORM WITH [facility] IF NEEDED AT DISCHARGE. PATIENT LIVES WITH DAUGHTER AND WILL RETURN THERE AT DISCHARGE.
[2016-05-11 12:12] VITALS: BP 104/69
[2016-05-11 16:58] VITALS: BP 105/65
[2016-05-11 20:00] VITALS: BP 105/57
--- NOTE | 2016-05-11 20:56 | NUR ---
PATIENT RESTING IN BED WITHOUT SIGNS OF DISTRESS NOTED. ALERT AND ORIENTED. DENIES ANY NEEDS AT THIS TIME. SCHEDULED MEDS GIVEN. ASSESSMENT COMPLETED. BED LOW. CALL LIGHT IN REACH.
[2016-05-12] VITALS: BP 101/68
[2016-05-12 04:00] VITALS: BP 104/61
[2016-05-12 04:30] LABS: BASOPHILS 0.3 % (0.0-2.0); EOSINOPHILS 2.6 % (0-7); HEMATOCRIT 32.4 % (36.0-48.0); HEMOGLOBIN 9.9 g/dL (12-16); IMMATURE GRANULOCYTES 3.4 % (0-5); LYMPHOCYTES 17.1 % (15-50); MCH 28.7 pg (26.0-34.0); MCHC 30.6 g/dL (31.0-37.0); MCV 93.9 fL (80.0-100.0); MEAN PLATELET VOLUME 9.2 fL (7.4-10.4); MONOCYTES 11.8 % (2-11); NEUTROPHILS 64.8 % (40-80); PLATELET COUNT 369 10x3/uL (130-400); RBC 3.45 10x6/uL (4.00-5.40); RDW 13.6 % (11.5-14.5)
[2016-05-12 04:58] LABS: CALC OSMOLALITY 279 mosm/kg (275-300); CALCIUM 8.5 mg/dL (8.5-10.1); CARBON DIOXIDE 34.2 mmol/L (21.0-32.0); CHLORIDE - SERUM 103 mmol/L (98-107); CREATININE - SERUM 0.6 mg/dL (0.6-1.3); GLUCOSE 103 mg/dL (74-106); MAGNESIUM - SERUM 2.1 mg/dL (1.8-2.4); POTASSIUM - SERUM 4.5 mmol/L (3.5-5.1); SODIUM 141 mmol/L (136-145); UREA NITROGEN 10 mg/dL (7-18); eGFR NON AFRICAN AMERICAN > 90 mL/min (90-120)
[2016-05-12 04:59] LABS: PHOSPHOROUS 3.3 mg/dL (2.5-4.9)
--- NOTE | 2016-05-12 07:56 | NUR ---
PT AOX4 PT DENIES NEEDS AT THIS TIME. IV IN LEFT WRIST PATENT AND INTACT BED IN LOWEST SETTING CALL LIGHT WITHIN REACH WILL CONTINUE TO MONITOR
[2016-05-12 08:20] VITALS: BP 160/67
--- NOTE | 2016-05-12 08:53 | NUR ---
AWAKE AND ALERT. ORIENTED X3. SITTING UP IN BED EATING BREAKFAST. LUNGS ARE CLEAR BILATERALLY, NO COUGH NOTED. SKIN IS INTACT WITHOUT REDNESS EXCEPT INCISION TO MID ABDOMEN WHICH IS CLEAN AND DRY WITH CLIPS INTACT AND OLD DRAIN SITE TO ABDOMEN. IV TO LEFT FOREARM IS PATENT WITHOUT REDNESS AT INSERTION SITE. DENIES PAIN OR NEEDS.
--- NOTE | 2016-05-12 10:20 | NUR ---
PATIENT IS SITTING UP IN THE CHAIR. TPN AND IVF INFUSING. UNHOOKED PATIENT FROM IVF AND TPN SINCE PATIENT IS BEING DISCHARGE. WILL MONITOR PATIENT. PATIENT ASSESSMENT COMPLETED AT THIS TIME. PATIENT'S MIDLINE INCISION HAS REDNESS AT THE INFERIOR MOST PORTION OF THE INCISION. NO HEAT NOTED. NO DRAINAGE. JOSE ANGEL ARE INTACT. REMOVED DRESSING FROM PATIENT'S LEFT LOWER QUAD OF ABDOMEN WHERE PATIENT PREVIOUSLY HAD A NATALIA DRAIN. THERE IS AN OPENING ABOUT 1CM X 1CM. REDNESS AROUND OPENING, NO HEAT OR DRAINAGE. CLEANED WITH CHLORASEPTIC SPONGE AND APPLIED A 2X2 MEPILEX DRESSING. PATIENT STATED SHE WANTS TO GET BACK IN BED. PATIENT INDEPENDENTLY GOT UP FROM THE CHAIR AN INTO THE BED. COVERED PATIENT UP. CALL LIGHT IN REACH. PATIENT DENIES NEEDS.
--- NOTE | 2016-05-12 11:02 | NUR ---
CM REASSESSMENT NOTE: PATIENT WILL DISCHARGE TODAY-DAUGHTER DRIVING HER HOME. PATIENT DENIED HOME HEALTH OR ANY OTHER NEEDS. 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 PATIENT STATED "I WILL BE FINE".
[2016-05-12 12:30] VITALS: BP 77/47
--- NOTE | 2016-05-12 14:46 | NUR ---
D/C IV WITH CATHETER INTACT. CHECKED PATIENT'S BLOOD SUGAR, ONLY BECAUSE TPN WAS STOPPED TODAY. PATIENT IS NOT SHOWING ANY SIGNS OF HYPOGLYCEMIA. FSBS 88.
--- NOTE | 2016-05-12 15:17 | NUR ---
DISCHARGE INSTRUCTIONS COMPLETED WITH PATIENT AND PATIENT'S DAUGHTER. BOTH DENY QUESTIONS.
--- NOTE | 2016-05-12 15:20 | NUR ---
PATIENT LEFT VIA WHEELCHAIR.
--- NOTE | 2016-05-13 11:04 | NUR ---
LATE ENTRY: PATIENT D/C HOME WITH [facility]. PATIENT DECIDED TO GO AHEAD WITH HOME HEALTH JUST BEFORE DISCHARGE.
== END 2016-05-12 15:20 | disposition home health service (06) | DRG 330 ==
LOC: D.MS 14:11
PROVIDERS: Family Medicine; Surgery; ADMIT Family Medicine
PROC: 0D9670Z Drainage of Stomach with Drainage Device, Via Natural or Artificial Opening (ICD-10-PCS; principal; 2016-05-01)
PROC: 0DN84ZZ Release Small Intestine, Percutaneous Endoscopic Approach (ICD-10-PCS; 2016-05-05)
PROC: 0DQ84ZZ Repair Small Intestine, Percutaneous Endoscopic Approach (ICD-10-PCS; 2016-05-05)
DX: K56.5 Intestinal adhesions [bands] with obstruction (postinfection) (principal); K91.3 Postprocedural intestinal obstruction; K91.71 Accidental puncture and laceration of a digestive system organ or structure during a digestive system procedure; K21.9 Gastro-esophageal reflux disease without esophagitis; Y83.8 Other surgical procedures as the cause of abnormal reaction of the patient, or of later complication, without mention of misadventure at the time of the procedure

== ENCOUNTER 2016-06-02 14:46 | Emergency (ER) | payer MEDICARE, BC ==
[~2016-06-02 14:46] MED LIST: ASCORBIC ACID500 MG PO; BAYER CHEWABLE81 MG PO; BETIMOL15 ML RIGHT EYE; COREG 3.1253.125 MG PO; NEURONTIN600 MG PO; PLAVIX75 MG PO; SUPER B COMPLE150 MG PO; VITAMIN D2000 UNIT PO; VITAMIN E400 UNI2 PO; ZOCOR20 MG PO
[2016-06-02 15:18] LABS: BASOPHILS 0.2 % (0.0-2.0); EOSINOPHILS 1.7 % (0-7); HEMATOCRIT 33.9 % (36.0-48.0); HEMOGLOBIN 10.6 g/dL (12-16); IMMATURE GRANULOCYTES 0.2 % (0-5); LYMPHOCYTES 19.4 % (15-50); MCH 29.1 pg (26.0-34.0); MCHC 31.3 g/dL (31.0-37.0); MCV 93.1 fL (80.0-100.0); MEAN PLATELET VOLUME 9.2 fL (7.4-10.4); MONOCYTES 11.9 % (2-11); NEUTROPHILS 66.6 % (40-80); PLATELET COUNT 297 10x3/uL (130-400); RBC 3.64 10x6/uL (4.00-5.40); RDW 13.6 % (11.5-14.5); WBC 6.4 10x3/uL (4.8-10.8)
[2016-06-02 15:30] LABS: ALBUMIN 3.3 g/dL (3.4-5.0); ANION GAP 13.9 mmol/L (8-16); BILIRUBIN - TOTAL 0.33 mg/dL (0.2-1.3); CALCIUM 9.7 mg/dL (8.5-10.1); CARBON DIOXIDE 28.5 mmol/L (21.0-32.0); CREATININE - SERUM 1.2 mg/dL (0.6-1.3); POTASSIUM - SERUM 4.4 mmol/L (3.5-5.1); PROTEIN - SERUM 7.3 g/dL (6.4-8.2)
[2016-06-02 16:05] LABS: CREATINE KINASE 52 UL (21-215); PRO BNP 1361 pg/mL (0-125)
[2016-06-02 16:08] LABS: TROPONIN-I < 0.017 ng/mL (0.000-0.060)
[2016-06-02 18:50] LABS: APPEARANCE CLEAR (CLEAR); BILIRUBIN NEGATIVE (NEGATIVE); COLOR YELLOW (YELLOW); GLUCOSE NEGATIVE (NEGATIVE); KETONE MODERATE mg/dL (NEGATIVE); LEUKOCYTE ESTERASE TRACE (NEGATIVE); NITRITE NEGATIVE (NEGATIVE); PROTEIN TRACE mg/dL (NEGATIVE); SPECIFIC GRAVITY 1.015 (1.005-1.020); UROBILINOGEN NORMAL (NORMAL)
[2016-06-02 18:51] LABS: BACTERIA MODERATE /hpf (NONE SEEN); EPITHELIAL CELLS 0-5 /hpf (0-5); RED CELLS - URINE 0-5 /hpf (0-5)
== END 2016-06-02 19:05 | disposition home or self-care (01) ==
LOC: D.ER 14:46
PROVIDERS: Emergency Medicine; Nurse Practitioner Family
DX: R55 Syncope and collapse (principal); R53.1 Weakness; W19.XXXA Unspecified fall, initial encounter; Y93.89 Activity, other specified; Y92.89 Other specified places as the place of occurrence of the external cause